=== PATIENT | male | born 1965 | race Caucasian/White ===

== ENCOUNTER 2018-12-17 12:40 | Emergency (ER) | payer OTHER, SELFPAY ==
[2018-12-17 12:53] VITALS: BP 142/85; PULSE 75; RESP 16; TEMP 36.6; O2SAT 94
--- NOTE | 2018-12-17 13:07 | W.ED.GENAD ---
Discharge Plan Disposition Patient Disposition: HOME Condition: Fair Discharge Details Chief Complaint: Orthopedic Clinical Impression: Hamstring injury Primary Care Provider: Jyothi,Local ED Provider: Shayla Cerda Home Meds and New Rx's Prescriptions: New oxycodone 5 mg tablet 5 mg PO Q6H Qty: 7 RF: 0 Discharge Instructions Instructions: Hamstring Injury (ED) Additional Instructions: Encourage rest, ice, elevation. Tylenol and/or ibuprofen as needed for discomfort. You may augment this with oxycodone as prescribed. Please take this medication only as prescribed and keep a safe place. Please contact orthopedics on Wednesday to schedule follow-up appointment. Until that time, please continue with Trace wrap and knee brace. Crutches to help with ambulation. You may be touchdown weightbearing as tolerated. If you develop altered sensation, increased pain, fever/chills or other new/worsening symptoms please seek care urgently once again Discharge Data Discharge Date/Time-TO BE ENTERED AT DEPARTURE: 12/17/18 15:22 Medical Decision Making Patient 53-year-old male presenting today with chief complaint of left posterior thigh pain. He reports a prior to arrival he was skiing when the left tip of his ski caught on something rotated externally. Reports that this ski caught, he did release but he felt a wrong sensation in the posterior aspect of his thigh. Denies any altered sensation. States that he did hit his head but that it was not minor trauma, he was helmeted. No loss of consciousness, visual changes, headache, nausea or vomiting. Denies any pain in his neck or his back. On exam, patient does have swelling to the posterior thigh, appear primarily mid body of the hamstring. No ecchymosis is noted. Pain is primarily at the if the ischial tuberosity, primarily over the hamstring insertion. No palpable defect although there is swelling over this area. Patient is unable to flex at the knee against resistance. Good extension. I am concerned proximal hamstring rupture primarily. He was able to ambulate on the leg but felt weak and reports that his leg gave out. Plan to obtain CT scan, I did speak with the emissions testing and repair technician about this who advised CT with contrast. Also give pain medication. Discussed this plan with the patient who is in agreement Spoke with radiologist from the read who advised that CT would be insufficient looking for this type of injury. Rather, they advised follow-up as an outpatient with MRI and managing conservatively at this time. XR reviewed by radiologist: FINDINGS: Bones/joints: Normal. No acute fracture. Soft tissues: Normal. IMPRESSION: Unremarkable exam. Discussed findins with the patient. At this time, I remain concerned for hamstring injury, possible proximal insertion rupture. TRACE wrap will be applied to help with swelling, will immobilize the knee to help with discomfort, crutches for ambulation. Patient is from [facility], he will call orthopedics Wednesday to schedule appointment. I encouraged RICE. He was given strict return precautions. ADvised Tylenol and/or Ibuprofen for discomfort. Will prescribe Oxycodone to augment with this if insufficient. He iwll not drive while taking medication. Risks/benefits of narcotics and usage was discussed. All of his questions and concerns were addressed, he is in agreement with this plan. HPI General Mode of arrival: wheelchair. Date/Time Provider Initiated Documentation: 12/17/18 13:07. Limitations to Documentation: no limitations. Information obtained by: patient and family (accompanied by friend). History of Present Illness 53 year old M presents to the emergency department with the chief complaint of left posterior thigh pain, described as moderate, Quality is described as stabbing, and is localized to the left and lower extremity. Patient distal. Patient started experiencing this minute(s) and it has been constant. Immobilization improves symptom(s), Movement worsens symptoms . Patient notes denies chest pain, cough, fever/chills, headaches, nausea/vomiting, rash, shortness of breath and syncope. Patient did receive the following treatments prior to arrival, none Related Data Home Medications Medication Instructions Recorded Confirmed oxycodone 5 mg PO Q6H #7 tab 12/17/18 Previous Rx's Medication Instructions Recorded oxycodone 5 mg PO Q6H #7 tab 12/17/18 Allergies Allergy/AdvReac Type Severity Reaction Status Date / Time No Known Allergies Allergy Unverified 12/17/18 12:57 General Stated Complaint: Orthopedic BECKY: 4 Review of Systems Constitutional Reports as per HPI, Denies chills, Denies fatigue, Denies fever(s), Denies headache(s) and Denies weakness Eyes Reports as per HPI, Denies blurry vision, Denies change in vision and Denies loss of vision ENT Denies headache(s) Cardiovascular Reports as per HPI, Denies chest pain and Denies dyspnea Respiratory Denies dyspnea Gastrointestinal Reports as per HPI, Denies abdominal pain, Denies nausea and Denies vomiting Genitourinary Reports as per HPI and Denies urinary incontinence Musculoskeletal Reports as per HPI Integumentary/Breasts Reports as per HPI and Denies rash Neurologic Denies headache(s), Denies loss of vision and Denies weakness Endocrine Denies fatigue [facility] Social History Smoking/Tobacco Use Status: Never Exam Const General: cooperative, healthy appearing, comfortable, no acute distress, well developed and well groomed Nutritional Appearance: average body habitus and well nourished Orientation: alert, awake and oriented x3 HENMT Head: normal to inspection, no palpable skull fracture, normocephalic and atraumatic Ears: hearing grossly normal bilaterally, external ears normal and TM's normal bilaterally General nose exam: external nose normal Mouth: oral mucosae normal, lip normal and tongue normal Throat: posterior oropharynx normal Eyes General: appearance normal, both eyes and all related structures Neck Neck: normal visual inspection, full ROM, no lymphadenopathy, no meningeal signs, trachea midline and supple Chest Chest: normal inspection of the chest, normal palpation of entire chest wall, no crepitus and no localized rib tenderness Resp Effort & Inspection: normal respiratory effort, able to speak in complete sentences and no respiratory distress Auscultation: clear to auscultation bilaterally, no rales, no rhonchi and no wheezes Cardio Rate: regular rate Rhythm: regular rhythm Heart Sounds: S1 normal and S2 normal GI Inspection: normal to inspection, no abdominal wall ecchymosis, no edema and non-distended Palpation: soft, no hepatosplenomegaly, not firm, no guarding, no pulsatile masses, not rigid and nontender Auscultation: normal bowel sounds Back/Spine/Pelvis Back: no CVA tenderness Cervical Spine: normal cervical lordosis and cervical ROM normal Thoracic/Lumbar Spine: thoracic and lumbar spine normal to inspection, thoraco-lumbar ROM normal, No thoraco-lumbar ROM limited, No thoraco-lumbar spasm and No thoracic spinal tenderness Pelvis: no pain with anterior-posterior compression and no pain with lateral compression Skin General skin exam: no rashes or lesions noted Lesions: no lesions Rashes: no rashes Trauma: no lacerations or abrasions Wounds: no wounds Neuro General: alert, awake, oriented x3, gait normal, tone normal and moves all extremities Cranial Nerves: CN's II-XI intact bilaterally Cognition: normal cognition Speech: speech normal Gait: normal gait Motor: muscle tone normal throughout and strength 5/5 throughout Sensory Exam: no sensory deficits noted (no saddle paresthesias) Extrem General: full ROM, normal capillary refill, no pedal edema and no calf tenderness Left lower extremity: full ROM, normal capillary refill, no joint enlargement, hip/thigh (pain over ischial tuberosity, swelling to hamstring. No obvious deformity) and knee (Unable to flex against resistance. Good extension, full ROM); abnormal to inspection (Swelling to the posterior left thigh. No ecchymosis) Psych Appearance: grossly normal and well kempt Mental Status: mental status grossly normal Speech and Movement: speech and movement normal Course Vital Signs Temperature 36.6 C 12/17/18 12:53 Pulse 75 12/17/18 12:53 Respiratory Rate 16 12/17/18 12:53 Blood Pressure 142/85 H 12/17/18 12:53 Pulse Oximetry 94 L 12/17/18 12:53 Temperature 36.6 C 12/17/18 12:53 Temperature Source Skin 12/17/18 12:53 Pulse 75 12/17/18 12:53 Respiratory Rate 16 12/17/18 12:53 Respiratory Effort 12/17/18 12:53 Blood Pressure 142/85 H 12/17/18 12:53 Blood Pressure Position Sitting 12/17/18 12:53 Pulse Oximetry 94 L 12/17/18 12:53 Oxygen Delivery Method Room Air 12/17/18 12:53 Oxygen Flow Rate 0 12/17/18 12:53 Pain Level 2 12/17/18 12:53
--- NOTE | 2018-12-17 13:23 | ED.GENADUL_ITS ---
Discharge Plan Disposition Patient Disposition: HOME Condition: Fair Discharge Details Chief Complaint: Orthopedic Clinical Impression: Hamstring injury Primary Care Provider: Jyothi,Local ED Provider: Shayla Cerda Home Meds and New Rx's Prescriptions: New oxycodone 5 mg tablet 5 mg PO Q6H Qty: 7 RF: 0 Discharge Instructions Instructions: Hamstring Injury (ED) Additional Instructions: Encourage rest, ice, elevation. Tylenol and/or ibuprofen as needed for discomfort. You may augment this with oxycodone as prescribed. Please take this medication only as prescribed and keep a safe place. Please contact orthopedics on Wednesday to schedule follow-up appointment. Until that time, please continue with Trace wrap and knee brace. Crutches to help with ambulation. You may be touchdown weightbearing as tolerated. If you develop altered sensation, increased pain, fever/chills or other new/worsening symptoms please seek care urgently once again Discharge Data Discharge Date/Time-TO BE ENTERED AT DEPARTURE: 12/17/18 15:22 Medical Decision Making Patient 53-year-old male presenting today with chief complaint of left posterior thigh pain. He reports a prior to arrival he was skiing when the left tip of his ski caught on something rotated externally. Reports that this ski caught, he did release but he felt a wrong sensation in the posterior aspect of his thigh. Denies any altered sensation. States that he did hit his head but that it was not minor trauma, he was helmeted. No loss of consciousness, visual changes, headache, nausea or vomiting. Denies any pain in his neck or his back. On exam, patient does have swelling to the posterior thigh, appear primarily mid body of the hamstring. No ecchymosis is noted. Pain is primarily at the if the ischial tuberosity, primarily over the hamstring insertion. No palpable defect although there is swelling over this area. Patient is unable to flex at the knee against resistance. Good extension. I am concerned proximal hamstring rupture primarily. He was able to ambulate on the leg but felt weak and reports that his leg gave out. Plan to obtain CT scan, I did speak with the can technician about this who advised CT with contrast. Also give pain medication. Discussed this plan with the patient who is in agreement Spoke with radiologist from the read who advised that CT would be insufficient looking for this type of injury. Rather, they advised follow-up as an outpatient with MRI and managing conservatively at this time. XR reviewed by radiologist: FINDINGS: Bones/joints: Normal. No acute fracture. Soft tissues: Normal. IMPRESSION: Unremarkable exam. Discussed findins with the patient. At this time, I remain concerned for hamstring injury, possible proximal insertion rupture. TRACE wrap will be applied to help with swelling, will immobilize the knee to help with discomfort, crutches for ambulation. Patient is from [facility], he will call orthopedics Wednesday to schedule appointment. I encouraged RICE. He was given strict return precautions. ADvised Tylenol and/or Ibuprofen for discomfort. Will prescribe Oxycodone to augment with this if insufficient. He iwll not drive while taking medication. Risks/benefits of narcotics and usage was discussed. All of his questions and concerns were addressed, he is in agreement with this plan. HPI General Mode of arrival: wheelchair . Date/Time Provider Initiated Documentation: 12/17/18 13:07 . Limitations to Documentation: no limitations . Information obtained by: patient and family (accompanied by friend) . History of Present Illness 53 year old M presents to the emergency department with the chief complaint of left posterior thigh pain, described as moderate, Quality is described as stabbing, and is localized to the left and lower extremity. Patient distal. Patient started experiencing this minute(s) and it has been constant. Immobilization improves symptom(s), Movement worsens symptoms . Patient notes denies chest pain, cough, fever/chills, headaches, nausea/vomiting, rash, shortness of breath and syncope. Patient did receive the following treatments prior to arrival, none Related Data Home Medications Medication Instructions Recorded Confirmed oxycodone 5 mg PO Q6H #7 tab 12/17/18 Previous Rx's Medication Instructions Recorded oxycodone 5 mg PO Q6H #7 tab 12/17/18 Allergies Allergy/AdvReac Type Severity Reaction Status Date / Time No Known Allergies Allergy Unverified 12/17/18 12:57 General Stated Complaint: Orthopedic BECKY: 4 Review of Systems Constitutional Reports as per HPI, Denies chills, Denies fatigue, Denies fever(s), Denies headache(s) and Denies weakness Eyes Reports as per HPI, Denies blurry vision, Denies change in vision and Denies loss of vision ENT Denies headache(s) Cardiovascular Reports as per HPI, Denies chest pain and Denies dyspnea Respiratory Denies dyspnea Gastrointestinal Reports as per HPI, Denies abdominal pain, Denies nausea and Denies vomiting Genitourinary Reports as per HPI and Denies urinary incontinence Musculoskeletal Reports as per HPI Integumentary/Breasts Reports as per HPI and Denies rash Neurologic Denies headache(s), Denies loss of vision and Denies weakness Endocrine Denies fatigue [facility] Social History Smoking/Tobacco Use Status: Never Exam Const General: cooperative, healthy appearing, comfortable, no acute distress, well developed and well groomed Nutritional Appearance: average body habitus and well nourished Orientation: alert, awake and oriented x3 HENMT Head: normal to inspection, no palpable skull fracture, normocephalic and atraumatic Ears: hearing grossly normal bilaterally, external ears normal and TM's normal bilaterally General nose exam: external nose normal Mouth: oral mucosae normal, lip normal and tongue normal Throat: posterior oropharynx normal Eyes General: appearance normal, both eyes and all related structures Neck Neck: normal visual inspection, full ROM, no lymphadenopathy, no meningeal signs, trachea midline and supple Chest Chest: normal inspection of the chest, normal palpation of entire chest wall, no crepitus and no localized rib tenderness Resp Effort & Inspection: normal respiratory effort, able to speak in complete sentences and no respiratory distress Auscultation: clear to auscultation bilaterally, no rales, no rhonchi and no wheezes Cardio Rate: regular rate Rhythm: regular rhythm Heart Sounds: S1 normal and S2 normal GI Inspection: normal to inspection, no abdominal wall ecchymosis, no edema and non-distended Palpation: soft, no hepatosplenomegaly, not firm, no guarding, no pulsatile masses, not rigid and nontender Auscultation: normal bowel sounds Back/Spine/Pelvis Back: no CVA tenderness Cervical Spine: normal cervical lordosis and cervical ROM normal Thoracic/Lumbar Spine: thoracic and lumbar spine normal to inspection, thoraco- lumbar ROM normal, No thoraco-lumbar ROM limited, No thoraco-lumbar spasm and No thoracic spinal tenderness Pelvis: no pain with anterior-posterior compression and no pain with lateral compression Skin General skin exam: no rashes or lesions noted Lesions: no lesions Rashes: no rashes Trauma: no lacerations or abrasions Wounds: no wounds Neuro General: alert, awake, oriented x3, gait normal, tone normal and moves all extremities Cranial Nerves: CN's II-XI intact bilaterally Cognition: normal cognition Speech: speech normal Gait: normal gait Motor: muscle tone normal throughout and strength 5/5 throughout Sensory Exam: no sensory deficits noted (no saddle paresthesias) Extrem General: full ROM, normal capillary refill, no pedal edema and no calf tenderness Left lower extremity: full ROM, normal capillary refill, no joint enlargement, hip/thigh (pain over ischial tuberosity, swelling to hamstring. No obvious deformity) and knee (Unable to flex against resistance. Good extension, full ROM); abnormal to inspection (Swelling to the posterior left thigh. No ecchymosis) Psych Appearance: grossly normal and well kempt Mental Status: mental status grossly normal Speech and Movement: speech and movement normal Course Vital Signs Temperature 36.6 C 12/17/18 12:53 Pulse 75 12/17/18 12:53 Respiratory Rate 16 12/17/18 12:53 Blood Pressure 142/85 H 12/17/18 12:53 Pulse Oximetry 94 L 12/17/18 12:53 Temperature 36.6 C 12/17/18 12:53 Temperature Source Skin 12/17/18 12:53 Pulse 75 12/17/18 12:53 Respiratory Rate 16 12/17/18 12:53 Respiratory Effort 12/17/18 12:53 Blood Pressure 142/85 H 12/17/18 12:53 Blood Pressure Position Sitting 12/17/18 12:53 Pulse Oximetry 94 L 12/17/18 12:53 Oxygen Delivery Method Room Air 12/17/18 12:53 Oxygen Flow Rate 0 12/17/18 12:53 Pain Level 2 12/17/18 12:53
[2018-12-17] MEDS: Acetaminophen 500 MG TAB 1000 MG PO (13:30)
[2018-12-17] MEDS: Ibuprofen 600 MG TAB PO (13:31)
[2018-12-17] MEDS: oxyCODONE 5 MG TAB PO (13:31)
--- NOTE | 2018-12-17 13:45 | DI.RAD_ITS ---
SYMPTOM/DIAGNOSIS: TRAUMA PELVIS AND LEFT HIP: No fracture or dislocation is seen. The hip joints are well maintained. There is mild acetabular spurring. IMPRESSION: Negative pelvis and left hip.
--- NOTE | 2018-12-17 14:29 | DI.VRAD_ITS ---
EXAM: XR Left Hip with Pelvis when Performed, 2 or 3 Views EXAM DATE/TIME: 12/17/2018 2:17 PM CLINICAL HISTORY: 53 years old, male; Pain; Other: Hamstring pain TECHNIQUE: XR Left hip with pelvis when performed, 2 or 3 views COMPARISON: No relevant prior studies available. FINDINGS: Bones/joints: Normal. No acute fracture. Soft tissues: Normal. IMPRESSION: Unremarkable exam. COMMENT: Preliminary interpretation is based on receipt of 3 image(s). A final report will be issued subsequently. Dictated and Authenticated by: Mary Ellen Mcdonald MD. Ordering:STEVE Mcguire MD
--- NOTE | 2018-12-17 14:31 | DI.VRAD_ITS ---
EXAM: XR Left Femur, 2 Views EXAM DATE/TIME: 12/17/2018 2:18 PM CLINICAL HISTORY: 53 years old, male; Pain; Thigh; Left TECHNIQUE: XR Left femur, 2 views COMPARISON: No relevant prior studies available. FINDINGS: Bones/joints: Bony alignment is anatomic without evidence for fracture or dislocation. Soft tissues: Normal. IMPRESSION: Unremarkable exam. COMMENT: Preliminary interpretation is based on receipt of 4 image(s). A final report will be issued subsequently. Dictated and Authenticated by: Mary Ellen Mcdonald MD. Ordering:STEVE Mcguire MD
[2018-12-17 15:25] VITALS: BP 148/82; PULSE 95; RESP 18; TEMP 37.7; O2SAT 96
--- NOTE | 2018-12-19 12:15 | DI.RAD_ITS ---
SYMPTOM/DIAGNOSIS: TRAUMA. REORDERED AFTER CANCELED LEFT FEMUR: The knee is partially included on the exam. No acute fracture is identified. There is calcification at the tibial tubercle. IMPRESSION: No acute abnormality.
== END 2018-12-17 15:22 | disposition home or self-care (01) ==
PROVIDERS: Emergency Provider Physician Assistant
DX: S79.922A Unspecified injury of left thigh, initial encounter (principal); V00.328A Other snow-ski accident, initial encounter
CPT/HCPCS: 73552; 99284; 73502; E0114; L1830